=== PATIENT | female | born 1965 | race Caucasian/White ===

== ENCOUNTER 2019-02-05 13:53 | Outpatient (CLI) | payer OTHER ==
--- NOTE | 2019-02-12 12:31 | CONSULTATION REPORT ---
DATE OF CONSULTATION: 02/05/2019 SUBJECTIVE: Rachel is a 53-year-old female presenting to the clinic as a new patient for me for painful ingrown toenails on both great toes as well as heel pain on both heels, with the left being much worse than the right. She has had ingrown toenail issues multiple times with recurrent ingrown toenails on both borders of both great toes. She after discussion today would like to just do 1 nail border at a time and would like to have the left great toe medial border performed today with a partial nail avulsion with chemical matrixectomy. She does not admit to any other health issues and denies any known drug allergies. She denies being diabetic. OBJECTIVE: Vitals: Temperature 98.3 degrees Fahrenheit, heart rate 90, respiration rate 18, blood pressure 148/84. O2 saturation is 97% on room air. Vascular: 2+ DP and PT pulses, left and right foot. Capillary refill time is less than 3 seconds to the toes bilaterally. There is no edema noted bilaterally. Dermatologic: There is no real erythema or obvious irritation noted, bilateral great toes. There is no ecchymosis or any open lesions noted or hyperkeratosis, bilateral feet. The patient on the left plantar arch has a very large geographic area under the arch with small purulent vesicles as well as dry scaly skin and red irritation. This appears to be more of a vesicular tinea pedis versus eczema. The patient has Elocon cream which she just started using at home which I am okay with her trying for a little while before considering switching her to something like Lotrisone. Musculoskeletal: There is some pain on palpation noted on the medial border of the left great toenail. There is also mild pain on palpation on the lateral border of the left great toenail and the medial great border of the right great toenail. The patient again would like to just do a procedure on one border today. She does not have any drainage of any kind. The patient has pain on palpation noted at the plantar medial tubercle bilateral lower extremities, especially the left foot. The patient also has limited ankle dorsiflexion to approximately 0 degrees with the knee extended bilaterally with improvement to about 5 degrees with the knee flexed bilaterally. Neurologic: Light touch sensation is intact to the toes, bilaterally. ASSESSMENT AND PLAN: 1. Onychocryptosis. 2. Plantar fasciitis, bilateral, left greater than right. 3. Eczema. PROCEDURE #1: Left medial hallux partial nail avulsion with chemical matrixectomy was performed. The risks and benefits that include but not limited to bleeding and infection were discussed with the patient and she has agreed to go forward with a left medial border of the left hallux partial nail avulsion with chemical matrixectomy. She would prefer to just do 1 border at a time to limit the risk of the nail lifting off the base and allowing phenol to get underneath there. Procedure detail: The patient had the base of the left great toe cleansed with an alcohol swab and a total of 6 mL of 1:1 mix of 2% lidocaine plain and 0.5% Marcaine plain were injected into the base of the left great toe. The site was exsanguinated and left toe tourniquet was applied. At this time a Betadine prep was performed. At this time the left great toe medial border was released from its surrounding edges with a nail spatula and a nail splitter was used to avulse the edge of that nail. It was confirmed that there was no nail remaining. The site was rinsed with normal saline and then triple antibiotic ointment was applied around the edge of the skin to protect it from the phenol. Phenol was then applied in applications of 45 seconds, 30 seconds, and 30 seconds. This totaled 3 applications. The tourniquet was released and a prompt hyperemic response was noted to the left great toe. 70% isopropyl alcohol was then utilized to clean and dilate out the phenol from the entire surgical site. This was then rinsed with a copious amount of normal saline, dried and pressure was held to obtain hemostasis. Dressings were then applied consisting of Silvadene, 4x4 gauze, 2-inch Romario and 1-inch Coban beginning on the great toe and ending on the distal forefoot of the left foot to help hold it on the toe. The patient had postprocedure instructions given verbally and written. She will follow up with me in about 2 weeks from this to make sure it is healing well. She knows to do triple antibiotic ointment and a Band-Aid twice a day for about 7 days and then to switch to just once a day with that same dressing for the second week until she sees me. With regards to the plantar fasciitis, the patient was shown calf stretching exercises and we discussed the importance of orthotics and we encouraged her to go to [facility] in [place], or to the place she would like to go in [place] and was encouraged to find inserts that were firm in the arch area. The patient understands this and will do this, and will follow up on the plantar fasciitis at our future visit and consider if we need to do any sort of steroid injection at that time. With regards to the eczema/possible tinea pedis underneath the left arch, the patient would like to use her Elocon cream at this time and will consider switching to Lotrisone and can call that in if the patient decides she would like to do that instead. If the patient calls while Im out of town, I authorized our nurse to call in that prescription for Lotrisone 45 g tube, apply a small amount to affected area twice daily x3 weeks. No refills. The patient can have that called in if needed if she decides to switch from the Elocon to this while I am out of town. Return to the clinic in 2-1/2 weeks and we will consider doing a partial nail avulsion of the right great toe medial border at that time while we have mostly healed the left great toe medial border by then. The patient would like to move on to the next toe and will likely do that on all 3 or maybe 4 borders of the great toes going forward at subsequent visits. She would like to do that to be most safe. Valentin Olivera D.P.M. Maisha Job#: [id number] MTDD
== END 2019-02-05 14:23 ==
LOC: POD 13:53
PROVIDERS: ATTEND Podiatrist Foot & Ankle Surgery
DX: L60.0 Ingrowing nail (principal); M72.2 Plantar fascial fibromatosis; L30.9 Dermatitis, unspecified
CPT/HCPCS: 11730; 99202; A4554; J2001; J3490

== ENCOUNTER 2019-02-22 14:18 | Outpatient (CLI) | payer OTHER ==
--- NOTE | 2019-02-26 14:40 | OP Clinic Progress Note ---
DATE OF VISIT: 02/22/2019 SUBJECTIVE: Rachel is a 53-year-old female presenting to clinic today for followup of a partial nail avulsion with chemical matrixectomy performed on the left great toe medial nail border on 02/05/2019 as well as for a plan to do a partial nail avulsion on the right great toe medial border with chemical matrixectomy. She is also here to follow up on the possible eczema/tinea pedis that she was using Elocon cream for under the left foot, now it is on the right foot. She would like to go ahead and go forward with a different medication, that I was recommending before. This was done with her today to get filled, which is Lotrisone. The patient also is having some plantar fasciitis pain, left more than right, which we have discussed stretching exercises with her about and she I believe is working on those. The patient states that she is having some pain at the left great toe and is worried that it may be infected. OBJECTIVE: Vitals: Temperature 98.3, heart rate 88, respiration rate 16, blood pressure 146/89, O2 sat is 97% on room air. Vascular: 2+ DP and PT pulses left and right feet. Capillary refill time less than 3 seconds to the toes bilaterally. There is no edema except for mild edema noted perhaps at the base of the left great toenail area. Dermatologic: There is slight pink discoloration at the base of the left great toenail near the eponychium on the medial border where the procedure was performed. That does not show any demonstration of erythema or abnormal drainage or purulence or any signs of warmth or malodor or infection. There is mild slough in the wound in the procedure site which was debrided with a curette and rinsed with normal saline today and looks great. This looks appropriate for normal healing. She is about two and a half weeks since her procedure. The left plantar arch and now a small portion of the right plantar arch has a red scaly irritated xerotic skin area somewhat geographic in appearance on the left and more round on the right. The right great toe medial border does not show any signs of irritation at this time, but is sore per the patient. There are no other skin abnormalities noted. Musculoskeletal: There is some pain on palpation noted today and also at times based on the side for the medial and lateral great toenail borders on the right as well as the lateral border of the left great toenail. She has felt mild pain on palpation at the left great toe medial border from the procedure. She has no other gross abnormalities noted. Per previous exam, the patient had limited ankle dorsiflexion to about 0 degrees with the knee extended bilaterally with improvement to about 5 degrees with the knee flexed bilaterally. This was not examined today nor did we focus on the plantar fasciitis as we were focused on the toenails and the eczema. Neurologic: Light touch sensation is intact to the toes, bilaterally. There is no signs of infection bilateral feet. ASSESSMENT AND PLAN: 1. Onychocryptosis - followup of partial nail avulsion with chemical matrixectomy of the left hallux medial border. Healing appropriately. 2. Onychocryptosis and pain at the right great toe medial border. 3. Tinea pedis, bilateral feet. 4. Plantar fasciitis bilaterally, not being treated currently except for encouraging stretching. PROCEDURE #1: Partial nail avulsion with chemical matrixectomy of the right great toe medial border was performed today. Risks and benefits were discussed with the patient including, but not limited to bleeding and infection and the patient agreed, both a written and verbal consent to go forward with the procedure at this time. Procedure in detail: The right great toe was cleansed with an alcohol swab and injected with a 1:1 mix of 2% lidocaine plain and 0.5% Marcaine plain totaling 4 mL. The toe was anesthetized appropriately and then exsanguinated and a toe tourniquet was applied. The site was cleansed with Betadine prep and then the medial border of the right great toenail was loosened from its surrounding edges and avulsed with nail splitters. The nail was found to be removed entirely on the medial border and rinsed with copious amount of normal saline. At this time triple antibiotic ointment was placed around the edge to protect the skin from the Phenol. Phenol was then applied in three applications consisting of 45 seconds, 30 seconds, and 30 seconds. The tourniquet was removed and a prompt hyperemic response was noted to the right great toe. At this time a copious amount of 70% isopropyl alcohol was utilized to cleanse the wound site and the toe and foot. The area was rinsed with a copious amount of normal saline, dried and dressings were applied consisting of Santyl, 4x4 gauze, 2-inch Romario and 1- inch Coban beginning on the great toe and ending on the distal forefoot. The patient tolerated the procedure well. The patient understands the normal procedure for washing this appropriately and she was given instructions to continue using. The patient also had a small debridement of the left great toe medial border which is not being charged for, but this was cleaned out with a curette and normal saline. This was then dressed with a triple antibiotic ointment and a Band-Aid. She is to continue doing the triple antibiotic ointment and a Band- Aid daily for one week and then just a Band-Aid for one week and begin increasing air time at that time. The prescription for Lotrisone 1%/0.05% cream was dispensed, 45 g tube to apply a small amount twice daily to bilateral plantar feet x 2 weeks. The patient will begin doing this and will follow up on this at the next visit. The patient was encouraged to get [employer] and the information was given to the patient to obtain those to help with the inserts as well today for her plantar fasciitis. Hopefully she will continue doing her stretches as well. She has no questions or concerns otherwise and we will have her plan on following up in three weeks for a visit to follow up the left great toe medial border and more recently the right great toe medial border that was performed today. The left great toe medial border was performed on 02/05/2019. She is to call with any concerns and report to the ER or urgent care if there is any concerns over the weekend as we discussed with her today. Valentin Olivera D.P.M./[employer] [id number] /mab MTDD
== END 2019-02-22 14:58 ==
LOC: POD 14:18
PROVIDERS: ATTEND Podiatrist Foot & Ankle Surgery
DX: B35.3 Tinea pedis (principal); L60.0 Ingrowing nail; M72.2 Plantar fascial fibromatosis
CPT/HCPCS: 11730; 99213; A4554

== ENCOUNTER 2019-03-15 14:15 | Outpatient (CLI) | payer OTHER ==
--- NOTE | 2019-03-19 12:18 | OP Clinic Progress Note ---
DATE OF VISIT: 03/15/2019 SUBJECTIVE: Rachel is a 53-year-old female presenting to the clinic for follow-up of left great toe medial border partial nail avulsion and chemical matrixectomy on 02/05/19 which has healed, and a right great toe medial border partial nail avulsion and chemical matrixectomy on 02/22/19 which is healing very well so far. The patient also is here for follow-up on tinea pedis versus possible eczema on bilateral plantar feet in the arches that she has not been getting improvement with Elocon cream and has thus been trying Lotrisone the last 3 weeks and feels she is getting some improvement but still has some pain and itching in especially the, I believe, right foot. The patient also presents for plantar fasciitis bilateral which she has done a little bit of stretching but needed greater clarification on what to do for that as well. She does not admit to any other issues or problems and does not admit to any fevers, chills, nausea, vomiting, shortness of breath or chest pain. OBJECTIVE: Vitals: Temperature 98.4 degrees Fahrenheit, heart rate 81, respiration rate 18, blood pressure 161/87. O2 saturation is 95% on room air. Vascular: 2+ DP and PT pulses bilaterally. Capillary refill time is less than 3 seconds to the toes bilaterally. There is no edema noted bilaterally. Dermatologic: There is no irritation, erythema or open lesions really noted on bilateral feet at this time. There is very slight wet tissue on the proximal medial border of the right great toenail where the procedure was performed. This is almost completely dry, however. The remaining left great toe also appears very well healed at this time with no wetness at all. There is no signs of erythema, warmth or malodor, drainage, ecchymosis or open lesions anywhere else noted, bilateral feet. The bilateral plantar medial arches have evidence of what appears to be eczema versus tinea pedis. One foot has more of a tinea pedis appearance with more of a vesicular appearance with small white pustules. The other foot has more of a red irritated and xerotic skin appearance fairly well geographically delineated. These are feeling better to the patient. These are less itchy for the patient. Musculoskeletal: There is no pain on palpation noted, bilateral great toes. There per previous exam is some limited ankle dorsiflexion to about 0 degrees with the knee extended bilaterally with improvement to about 5 degrees with the knee flexed bilaterally. The patient does have some pain on palpation on bilateral plantar medial calcaneal tuberosities. This was noted today. Neurologic: Light touch sensation is intact to the toes, bilaterally. ASSESSMENT AND PLAN: 1. Onychocryptosis follow-up of the left great toe medial and right great toe medial border partial nail avulsion with chemical matrixectomy on 02/05/19 and 02/22/19, respectively. The left one is healed and the right is healing well. The patient was encouraged to continue a regular Band-Aid for 1 more week on the right great toe medial border. She will do this and then discontinue anything else on there. She is okay to do so on the feet at this time as she is virtually dry on both great toes. 2. Tinea pedis versus eczema continue Lotrisone for 2 more weeks twice a day and then we will see her in about 3 weeks from now and may consider a Medrol Dosepak if this is not improved greatly by then. Otherwise we will encourage her to try the Elocon cream again and send her for a Dermatology referral. 3. Bilateral plantar fasciitis we demonstrated stretches today and encouraged stretching 3 or 4 times a day. She also was encouraged to get inserts but she tried and decided she refused them at the place because they were $70.00. She knows that we have [employer] inserts that we may consider giving her at our next visit to use. Return to clinic in 3 weeks in the [facility]. We will consider a Medrol Dosepak for tinea pedis versus eczema and a dermatology referral if not improving. We will also check to make sure the right great toe medial border is completely healed at that time and we will check on the plantar fasciitis bilaterally to make sure that she is doing stretching exercises and a frozen water bottle like we discussed today. We will discuss that further once we limit some of the other problems and then can focus more on plantar fasciitis at our next visit as needed. Valentin Olivera D.P.M. Maisha Job#: [id number] MTDDidier
== END 2019-03-15 14:45 ==
LOC: POD 14:15
PROVIDERS: ATTEND Podiatrist Foot & Ankle Surgery
DX: L60.0 Ingrowing nail (principal); M72.2 Plantar fascial fibromatosis
CPT/HCPCS: 99213